=== PATIENT | male | born 1935 | race American Indian/Alaskan Native ===

== ENCOUNTER 2019-07-22 06:06 | Day surgery (SDC) | payer BC, MEDICARE ==
[2019-07-22 07:23] LABS: Basophils % (Auto) 0.3 % (0.0-1.8); Eosinophils # (Auto) 0.2 K/mm3 (0.0-0.4); Eosinophils % (Auto) 3.4 % (0.0-4.3); Hemoglobin 14.9 gm/dl (11.8-15.2); Lymphocytes # (Auto) 2.1 K/mm3 (1.2-5.4); Lymphocytes % (Auto) 34.1 % (13.4-35.0); Mean Corpuscular HGB Conc 35 % (32-34); Mean Corpuscular Volume 93 fl (84-94); Monocytes # (Auto) 0.4 K/mm3 (0.0-0.8); Monocytes % (Auto) 6.2 % (0.0-7.3); Platelet Count 113 K/mm3 (140-440); Red Blood Count 4.51 M/mm3 (3.65-5.03); Red Cell Distribution Width 13.2 % (13.2-15.2)
[2019-07-22 07:36] LABS: INR 1.07 (0.87-1.13)
[2019-07-22 07:46] LABS: BUN/Creatinine Ratio 18; Blood Urea Nitrogen 14 mg/dL (9-20); Calcium 9.7 mg/dL (8.4-10.2); Hemolysis Index 15
[2019-07-22] MEDS ORDERED: SODIUM CHLORIDE 0.9% 500 ML 500 ML IV SCH (08:00)
[2019-07-22] MEDS ORDERED: HEPARIN/NS 5000 UNIT/500ML 1,000 ML IR ONE (09:28)
[2019-07-22] MEDS: MIDAZOLAM 2 MG/2 ML INJ ONE ×2 (09:37→09:43)
[2019-07-22] MEDS: fentaNYL 100 MCG/2 ML INJ ONE ×2 (09:37→09:43)
[2019-07-22] MEDS: VERAPAMIL 5 MG/2 ML INJ ONE ×2 (09:38→09:47)
[2019-07-22] MEDS: NITROGLYCERIN SYRINGE 3 ML ONE ×2 (09:38→09:47)
[2019-07-22] MEDS: LIDOCAINE (2%) 20 MG/1 ML VIAL 20 ML MDV INFILTRATI ONE ×2 (09:38→09:46)
[2019-07-22] MEDS: HEPARIN 10,000 UNITS/10 ML VIAL ONE ×2 (09:39→09:47)
--- NOTE | 2019-07-22 10:09 | Discharge Summary ---
Short Stay Discharge Plan Activity: advance as tolerated Weight Bearing Status: Full Weight Bearing Diet: low fat, low cholesterol, low salt Wound: keep clean and dry Special Instructions: no heavy lifting (3 days) Follow up with: SANDRA CARBAJAL JR, MD [Primary Care Provider] - 7 Days ADRIAN ASHRAF MD [Staff Physician] - 7 Days
--- NOTE | 2019-07-22 10:13 | Cardiac Catherization Report ---
CARDIAC CATHETERIZATION REPORT REASON FOR PROCEDURE: The patient is an 83-year-old man with complaints of chest pain. Despite a normal exercise thallium stress test, he complains of progressive exertional chest pain, prompting a recommendation for cardiac catheterization. PROCEDURES: 1. Left heart catheterization. 2. Selective left and right coronary angiography. 3. Left ventricular angiography. 4. Sedation time, start 09:45; end 09:53. DESCRIPTION OF PROCEDURE: The patient was prepped and draped in a sterile fashion after informed consent. The right radial cath site was prepped and draped after a negative Cameron's test. The right radial artery was entered using the Seldinger technique followed by placement of a 6-Filipino hydrophilic sheath. Routine radial cocktail was administered via the sheath. Left coronary angiography was performed using a #3.5 left Kellen catheter. A #4 right Kellen was used for right coronary angiography. The right Kellen was used for left ventricular angiography. The catheters were removed, sheath removed, and hemostasis achieved using a TR band. The patient was returned to the postprocedure unit in stable condition. There were no complications. FINDINGS: HEMODYNAMICS: Left ventricular end-diastolic pressure was 21, following coronary angiography. Ascending aortic pressure was 135/55. There was no significant pressure gradient on pullback across the aortic valve. CORONARY ANGIOGRAPHY: The left main coronary artery was angiographically normal. The left anterior descending artery and its diagonal branches were angiographically normal. The circumflex artery and its obtuse marginal branches were angiographically normal. The right coronary artery was dominant and similarly free of significant disease. Left ventricular systolic function was within normal limits, ejection fraction of 55%. CONCLUSION: 1. Essentially, angiographically normal coronary arteries. 2. Normal left ventricular systolic function, ejection fraction 55%. RECOMMENDATION: Risk factor modification and medical therapy. JOB# [id number] CA/NTS
[2019-07-22] MEDS ORDERED: SODIUM CHLORIDE 0.9% 1000 ML 1,000 ML IV SCH (11:00)
[2019-07-22 13:17] VITALS: BP 135/59
== END 2019-07-22 14:11 | disposition home or self-care (01) ==
LOC: CATHLABREC 06:06
PROVIDERS: ATTEND Internal Medicine Cardiovascular Disease
DX: R07.89 Other chest pain (principal); I10 Essential (primary) hypertension; Z88.0 Allergy status to penicillin; Z79.899 Other long term (current) drug therapy; Z79.82 Long term (current) use of aspirin; Z98.890 Other specified postprocedural states; Z85.46 Personal history of malignant neoplasm of prostate
CPT/HCPCS: 36415; 80048; 85025; 85610; 85730; 93005; 93010; 93458; C1894; J1644; J2250; J3010; J7030; J7040; Q9967